=== PATIENT | male | born 1985 | race Caucasian/White ===

== ENCOUNTER 2018-09-12 09:04 | Inpatient (IN) | payer BC, OTHER ==
[~2018-09-12] VITALS: Ht 172.7 cm; Wt 98.7 kg
[2018-09-12] VITALS (29 sets, daily range): BP systolic 95–159; BP diastolic 48–89; PULSE 63–106; RESP 12–25; Ht 172.7 cm; Wt 98.7 kg
[~2018-09-12 09:04] MED LIST: CEFAZOLIN 1 GM INJ ONE; DEXAMETHASONE 4 MG/ML 5 ML INJ ONE; FENTAnyl 50 MCG/ML VIAL ONE; MIDAZOLAM 1 MG/ML 2 ML INJ ONE; PROPOFOL 200 MG INJ ONE
[2018-09-12] MEDS ORDERED: CEFAZOLIN 2 GM/50 ML (PMX) 50 ML IVPB SCH (10:30)
[2018-09-12] MEDS ORDERED: LACTATED RINGER'S 1L BAG IV* SCH (10:30)
[2018-09-12] MEDS ORDERED: SUGAMMADEX SODIUM 200 MG/2 ML VIAL IV ONE (11:30)
[2018-09-12] MEDS ORDERED: LIDOCAINE 2% (SDV) 5 ML INJ ONE (13:03)
[2018-09-12] MEDS ORDERED: ONDANSETRON 4 MG INJ ONE (13:03)
[2018-09-12] MEDS ORDERED: ROCURONIUM 50 MG INJ ONE (13:03)
[2018-09-12] MEDS ORDERED: SUCCINYLCHOLINE CHLORIDE 100 MG/5 ML SYG IV ONE (13:03)
[2018-09-12] MEDS ORDERED: PROPOFOL 20 ML ONE (13:03)
--- NOTE | 2018-09-12 13:41 | HPN ---
Date/Time of Note Date/Time of Note DATE: 09/12/18 TIME: 13:41 Interval H&P Admission Note Pt. seen H&P reviewed: No system changes KAMERON MOSS PA-C Sep 12, 2018 13:41
[2018-09-12] MEDS ORDERED: CYCLOBENZAPRINE 10 MG TAB PO PRN (14:00)
[2018-09-12] MEDS ORDERED: DIPHENHYDRAMINE 50 MG INJ IV PRN ×2 (14:00→14:30)
[2018-09-12] MEDS ORDERED: ACETAMINOPHEN 325 MG TAB PO PRN (14:00)
[2018-09-12] MEDS ORDERED: CEPASTAT LOZENGE MT PRN (14:00)
[2018-09-12] MEDS ORDERED: AL HYDROX/MG HYDROX/SIMETH 30 ML CUP PO PRN (14:00)
[2018-09-12] MEDS ORDERED: DIPHENHYDRAMINE 25 MG CAP PO PRN (14:00)
[2018-09-12] MEDS ORDERED: HYDROmorphONE 0.5 MG/0.5 ML SYG IV PRN (14:00)
[2018-09-12] MEDS ORDERED: NALOXONE (0.4 MG/ML) INJ IV PRN (14:00)
[2018-09-12] MEDS ORDERED: BISACODYL 10 MG SUPP PR PRN (14:00)
[2018-09-12] MEDS ORDERED: ONDANSETRON 4 MG INJ IV PRN ×2 (14:00→14:30)
--- NOTE | 2018-09-12 14:02 | PREAC ---
Date/Time of Note Date/Time of Note DATE: 09/12/18 TIME: 14:01 Anesthesia Eval and Record Evaluation Time Pre-Procedure Interview DATE: 09/12/18 TIME: 14:01 Age 32 Sex male NPO: 8 hrs Preoperative diagnosis lumbar disc herniation Planned procedure lumbar microdiskectomy Past Medical History Past Medical History: Includes Pulm: Sleep Apnea Neuro: Peripheral neuropathy GI: Obesity Psych: Other (PTSD) Surgery & Anesthesia Issues Hx of difficult intubation Meds Anticoagulation: No Beta Lora within 24 hr: No Reason Beta Lora not given: Pt. not on B-Lora No Active Prescriptions or Reported Meds Current Medications Potassium Chloride/Dextrose/ Sod Cl 1,000 ml @ 100 mls/hr Q10H IV ; Start 09/12/18 at 13:41 Acetaminophen/ Hydrocodone Bitart ([place] (10/325)) 1 tab Q4H PRN PO PAIN LEVEL 1-5; Start 09/13/18 at 10:00 Acetaminophen/ Hydrocodone Bitart ([place] (10/325)) 2 tab Q4H PRN PO PAIN LEVEL 6-10; Start 09/13/18 at 10:00 Hydromorphone HCl (Dilaudid) 0.2 mg Q1H PRN IV BREAKTHROUGH PAIN; Start 09/12/18 at 14:00 Cefazolin Sodium 50 ml @ 100 mls/hr Q8H IVPB ; Start 09/12/18 at 14:00; Stop 09/13/18 at 06:29 Ondansetron HCl (Zofran Inj) 4 mg Q6H PRN IV NAUSEA AND/OR VOMITING; Start 09/12/18 at 14:00 Bisacodyl (Dulcolax Supp) 10 mg DAILY PRN [place] CONSTIPATION; Start 09/12/18 at 14:00 Docusate Sodium (Colace) 100 mg BID PO ; Start 09/12/18 at 21:00 Al Hydrox/Mg Hydrox/Simethicone (Mag-Al Plus) 15 ml Q6H PRN PO constipation; Start 09/12/18 at 14:00 Acetaminophen (Tylenol Tab) 650 mg Q4H PRN PO fever; Start 09/12/18 at 14:00 Cyclobenzaprine HCl (Flexeril) 10 mg TID PRN PO MUSCLE SPASMS; Start 09/12/18 at 14:00 Phenol (Cepastat Lozenge) 1 lozenge PRN PRN [place] SORE THROAT; Start 09/12/18 at 14:00 Diphenhydramine HCl (Benadryl) 25 mg Q6H PRN PO ITCHING; Start 09/12/18 at 14:00 Diphenhydramine HCl (Benadryl) 25 mg Q6H PRN IV ITCHING; Start 09/12/18 at 14:00 Naloxone HCl (Narcan) 0.2 mg Q2M PRN IV rr; Start 09/12/18 at 14:00 Hydromorphone HCl (Dilaudid PETROLEUM REFINERY LABORER) PETRO[employer] REFINERY [employer]ORER to be started in PACU Q4PCA IV ; Start 09/12/18 at 14:00; Stop 09/13/18 at 10:00 Miscellaneous Information 1. Hold PETROLEUM REFINERY LABORER at 1,000... PETROLEUM [employer]FINERY [employer]ORER IV ; Start 09/12/18 at 1 4:00; Stop 09/13/18 at 10:00 Meds reviewed: Yes Allergies Coded Allergies: No Known Allergy (Unverified , 09/12/18) Allergies Reviewed: Yes Labs/Studies Labs Reviewed: Reviewed by anesthesiologist test: N/A Pre-procedure Exam Last vitals Vital Signs Date Temp Pulse Resp B/P (MAP) Pulse Ox O2 O2 Flow FiO2 Time Delivery Rate 09/12/18 96.2 18 111/78 97 10:26 (89) Airway: Adequate mouth opening, Adequate thyromental dist Mallampati: Mallampati III Teeth: Normal Lung: Normal Heart: Normal ASA Physical Status ASA physical status: 2 Emergency: None Planned Anesthetic General/MAC: ETT Planned Pain Management Parenteral pain med, Other neuraxial med, Local by surgeon Pre-operative Attestations Prior to commencing anesthesia and surgery, the patient was re-evaluated, there was verification of: *The patient's identity *The results of appropriate recent lab work and preoperative vital signs *The above evaluation not changing prior to induction *Anesthetic plan, risk benefits, alternative and complications discussed with patient/family; questions answered; patient/family understands, accepts and wishes to proceed. OLI FRANKLIN MD Sep 12, 2018 14:02
[2018-09-12] MEDS ORDERED: GELATIN SIZE 100 SPONGE ONE (14:08)
[2018-09-12] MEDS ORDERED: THROMBIN 5000 UNIT VIAL ONE ×2 (14:09→14:37)
[2018-09-12] MEDS ORDERED: BUPIVACAINE 0.5%/EPI (SDV) 30 ML INJ ONE (14:09)
[2018-09-12] MEDS ORDERED: POLYMYXIN/BACITRACIN 1L IRRIG ONE (14:09)
[2018-09-12] MEDS ORDERED: BUPIVACAINE 0.25% (MPF) 30 ML INJ ONE (14:09)
[2018-09-12] MEDS ORDERED: CA CHLORIDE (GM) 10% 10 ML INJ ONE (14:12)
[2018-09-12] MEDS ORDERED: CEFAZOLIN 1 GM INJ ONE (14:12)
[2018-09-12] MEDS ORDERED: CA CHLORIDE 10% 10 ML SYRINGE ONE (14:12)
[2018-09-12] MEDS ORDERED: HEPARIN 1000 UNITS/ML 10 ML INJ ONE (14:12)
[2018-09-12] MEDS ORDERED: HYDROmorphONE 1 MG/5 ML IV SYRINGE IV PRN ×3 (14:30)
[2018-09-12] MEDS ORDERED: LABETALOL HCL 20MG INJ IV PRN (14:30)
[2018-09-12] MEDS ORDERED: FENTAnyl 50 MCG/ML VIAL IV PRN ×2 (14:30)
[2018-09-12] MEDS ORDERED: IPRATROPIUM (NEB) 0.5 MG/2.5 ML AMP HHN PRN (14:30)
[2018-09-12] MEDS ORDERED: LEVALBUTEROL (NEB) 1.25 MG/0.5 ML AMP HHN PRN (14:30)
[2018-09-12] MEDS ORDERED: hydrALAzine 20 MG INJ IV PRN (14:30)
[2018-09-12] MEDS ORDERED: MEPERIDINE 25 MG INJ IV PRN (14:30)
[2018-09-12] MEDS ORDERED: PHENYLephrine (100 MCG/ML) 10ML SYG ONE (14:33)
[2018-09-12] MEDS ORDERED: SURGIFOAM POWDER 1 GM KIT ONE (14:37)
[2018-09-12] MEDS: CEFAZOLIN 1 GM/50 ML (PMX) 50 ML IVPB SCH ×2 (15:00→21:36)
--- NOTE | 2018-09-12 16:19 | SIPON ---
Date/Time of Note Date/Time of Note DATE: 09/12/18 TIME: 16:19 Operative Report Preoperative Diagnosis Left L5-S1 disc herniation Postoperative Diagnosis Left L5-S1 disc herniation Operation/Procedure Performed Left L5-S1 discectomy Surgeon see signature line community assistant Jesi Rodriguez PA-C Anesthesia: general Estimated blood loss: 10 - 50 ml's Transfusion Required none Specimen Disc Grafts/Implants none Complications none KEKE SARGENT MD Sep 12, 2018 16:19
--- NOTE | 2018-09-12 16:38 | PAC ---
Date/Time of Note Date/Time of Note DATE: 09/12/18 TIME: 16:38 Post-Anesthesia Notes Post-Anesthesia Note Last documented vital signs Vital Signs Date Temp Pulse Resp B/P (MAP) Pulse Ox O2 O2 Flow FiO2 Time Delivery Rate 09/12/18 98.5 16:22 09/12/18 18 111/78 97 10:26 (89) Activity: WNL Respiratory function: WNL Cardiovascular function: WNL Mental status: Baseline Pain reasonably controlled: Yes Hydration appropriate: Yes Nausea/Vomiting absent: Yes OLI FRANKLIN MD Sep 12, 2018 16:38
--- NOTE | 2018-09-12 16:41 | OPR ---
DATE OF OPERATION: 09/12/2018 PREOPERATIVE DIAGNOSES: Left L5 to S1 disk herniation with radiculopathy. POSTOPERATIVE DIAGNOSES: Left L5 to S1 disk herniation with radiculopathy. PROCEDURES: 1. Left L5 to S1 hemilaminotomy, partial medial facetectomy and foraminotomy. 2. Left L5 to S1 lumbar microdiskectomy. 3. Use of operative microscope. 4. Lateral localizing film x2. 5. Intraoperative neuromonitoring. PRIMARY SURGEON: Gustavo Zendejas MD HEALTH ANALYTICS CONSULTANT: Jesi Rodriguez PA-C NEED FOR WASHER ASSEMBLER: During this spinal surgical procedure, my assistant engineer was used to retract and protect the spinal nerves and dural sac. My assistant engineer also employed the suction catheters to ev acuate blood from the surgical field to improve visualization of the neural structures. The assistan t was medically necessary to facilitate the completion of the surgery in a safe and expeditious [facility] r. [facility] regulations, as well as hospital bylaws, preclude the use of non-licensed [facility] care personnel, such as operating room technicians, to perform these functions. FINDINGS: Neuromonitoring at the start of the case revealed left S1 amplitude down 60%. At the end of the case, nerve signals returned to normal. The patient had left-sided herniation at the L5 to S1 level with displacement of the S1 nerve root. ESTIMATED BLOOD LOSS: Less than 30 mL. DRAINS: None. COMPLICATIONS OF PROCEDURES: None. SPECIMENS: L5 to S1 disk herniation. ANESTHESIOLOGIST: Dr. Diallo TYPE OF ANESTHESIA: General. INDICATIONS FOR PROCEDURE: This is a 32-year-old gentleman with left lumbar radiculopathy in setting of left-sided disk herniation at the L5 to S1 level. He failed nonoperative measures; therefore it was recommended that he undergo the above surgery. Preoperatively, we discussed risks, benefits and alternatives. He understood and wished to proceed. DESCRIPTION OF PROCEDURE IN DETAIL: The patient was identified in the preoperative holding area, giv en Ancef antibiotic, taken to the operating room, where he was successfully placed under general anes thesia. Neuromonitoring were placed. Sequential devices were applied. Remote intraoperative run wa s performed by Dr. Diaz from 14:00 until 16:10 to include SSEP, MEP and EMG performed by [facility]. The patient was placed on the operating table in prone position over a Apollo frame. All bony prominences were well padded. The back was then prepped and draped in usual sterile fashion. Spinal needles were placed and lateral localizing films obtained to confirm the correct levels. Once this was confirmed, I injected the skin and subcutaneous tissue with 0.25% Marcaine and epinephrine. Incision was then made over the L5 to S1 level. Incision was taken down to dorsal fascia, which wa s incised with Bovie cautery. I then subperiosteally dissected the L5 lamina. Jailyn retractor was placed. Kerrison was placed in what was felt to be the L5 lamina and repeat lateral films obtained t o confirm the correct levels. Once this was confirmed, microscope was brought in. Left-sided hemila minotomy, partial medial facetectomy and foraminotomy performed. Microscope was then brought in. Li gamentum flavum was then sharply dissected. I then identified the S1 nerve root which my assistant engineer r etracted medially. I identified the annulus, made a small slit through the annulus and removed extru ded fragments which were more centrally located just underneath the S1 nerve root. Once this was don e, I irrigated the disk space. All nerve signals returned to normal. I irrigated the wound. Valsal va was performed and there was no leak of CSF. Hemostasis was achieved with bipolar cautery and Surg ifoam. The wound was dry and I therefore elected not to place a drain. I injected PRP into the disk space and PPP and thrombin over the dura for hemostatic purposes. Retractors were then removed. I closed the deep fascia with #1 Vicryl stitch. Plain Marcaine was then injected. I then closed subcu taneous tissue with a 2-0 Vicryl stitch. Microscope was taken off the field. A 4-0 Monocryl closure was then performed. Dermabond was then applied. The patient was awakened from anesthesia and taken to the recovery room in stable condition. Lap, sponge and instrument counts were correct x2. There were no complications during the procedure. The patient will be admitted to the [facility] for routine postoperative care to include pain co ntrol, neurovascular checks, antibiotics and physical therapy. Dictated By: GUSTAVO MOYER/AIDA Conf#: [id number] DID#: [id number] CC: LEAH PATINO MD;*[facility]*
--- NOTE | 2018-09-12 17:37 | CONS ---
DATE OF ADMISSION: 09/12/2018 DATE OF CONSULTATION: 09/12/2018 TYPE OF CONSULTATION: Postop medical consultation. Thank you very much for allowing me to evaluate this 32-year-old male who just underwent lumbar back surgery. HISTORICAL EVENTS: As you well know, this patient did suffer an injury to his back at work about 2 y ears ago, which resulted in severe pain involving the left leg that has persisted through the present . Because of conservative efforts that did not allow any appreciable improvement, he elected to proc eed with surgery today. In recovery, he is comfortable without cough, wheezing, shortness of breath, nausea, vomiting, abdominal or chest pain. PAST MEDICAL HISTORY: 1. Posttraumatic stress disorder. 2. History of traumatic brain injury. 3. Prior tonsillectomy and wisdom tooth extraction. MEDICATIONS: Prior to admission, include: 1. Flexeril 10 mg t.i.d. 2. [place] 10/325. ALLERGIES: NONE. SOCIAL HISTORY: Legally . He does not smoke and does not drink. PHYSICAL EXAMINATION: GENERAL: [place] male in no acute distress. VITAL SIGNS: BP 122/80, pulse 70, respirations were 18. He was afebrile. EYES: Extraocular muscles were full. NOSE, MOUTH, AND THROAT: Normal. NECK: Supple. There was no jugular venous distention, thyroid enlargement or adenopathy. Carotids 2+. LUNGS: Clear. HEART: Rhythm regular. No murmur. No third or fourth sound. ABDOMEN: Nontender. Liver and spleen were not palpable. No mass or tenderness were noted. EXTREMITIES: No edema. Calves nontender. IMPRESSION: 1. Stable postoperative lumbar back surgery. 2. Traumatic brain injury. 3. History of posttraumatic stress disorder. PLAN: Again, reviewed details with respect to his history of posttraumatic stress disorder. Once he is more alert, will follow him daily for signs and symptoms of thromboembolic disease, and will foll ow with you. Dictated By: EMERSON RODRIGUEZ/NTS Conf#: [id number] DID#: [id number] CC: KEKE SARGENT MD;*EndCC*
[2018-09-12] MEDS: HYDROmorphONE 0.2 MG/ML PCA IV SCH (17:40)
[2018-09-12] MEDS: D5W-0.45 NACL + KCL 20 MEQ 1,000 ML IV SCH ×2 (19:15→23:41)
[2018-09-12] MEDS: DOCUSATE SODIUM 100 MG CAP PO SCH (21:35)
[2018-09-13 02:37] VITALS: BP 122/71; PULSE 94; RESP 18
[2018-09-13] MEDS: HYDROmorphONE 0.2 MG/ML PCA IV SCH (03:30)
[2018-09-13] MEDS: CEFAZOLIN 1 GM/50 ML (PMX) 50 ML IVPB SCH (06:06)
[2018-09-13 07:20] VITALS: BP 111/64; PULSE 85; RESP 18
--- NOTE | 2018-09-13 08:37 | CONS ---
Date/Time of Note Date/Time of Note DATE: 09/13/18 TIME: 08:35 Assessment/Plan Assessment/Plan Assessment/Plan 1. Doing well post op lumbar back surgery 2. Hiccups, will add iv Protonix and Reglan 3. Elev wbc likely from steroids Result Diagram: 09/13/18 0449 09/13/189 Results 24hrs Laboratory Tests Test 09/13/18 04:49 09/13/18 06:41 White Blood Count 16.2 H Red Blood Count 4.90 Hemoglobin 15.2 Hematocrit 43.3 Mean Corpuscular Volume 88.4 Mean Corpuscular Hemoglobin 31.0 Mean Corpuscular Hemoglobin Concent 35.1 Red Cell Distribution Width 11.2 L Platelet Count 365 Mean Platelet Volume 9.8 Immature Granulocytes % 0.600 H Neutrophils % 89.3 H Lymphocytes % 4.6 L Monocytes % 5.4 Eosinophils % 0.0 Basophils % 0.1 Nucleated Red Blood Cells % 0.0 Immature Granulocytes # 0.090 H Neutrophils # 14.5 H Lymphocytes # 0.8 Monocytes # 0.9 Eosinophils # 0.0 Basophils # 0.0 Nucleated Red Blood Cells # 0.0 Sodium Level 141 Potassium Level 4.3 Chloride Level 105 Carbon Dioxide Level 26 Anion Gap 10 Blood Urea Nitrogen 13 Creatinine 1.00 Est Glomerular Filtrat Rate mL/min > 60 Glucose Level 127 Calcium Level 9.6 Magnesium Level 1.9 Lab Scanned Report REFERENCE LAB Consultation Date/Type/Reason Admit Date/Time Sep 12, 2018 at 09:04 Initial Consult Date Detailed Summary Respiratory: No cough, No shortness of breath Cardiovascular: No chest pain, No orthopenea Gastrointestinal: other (hiccups started about 30 min ago); No pain, No nausea, No vomiting Genitourinary: no complaints Musculoskeletal: back pain (mild to mod) Exam/Review of Systems Vital Signs Vitals Vital Signs Date Temp Pulse Resp B/P (MAP) Pulse Ox O2 O2 Flow FiO2 Time Delivery Rate 09/13/18 97.7 85 18 111/64 95 Room Air 07:20 (80) 09/12/18 2.0 16:51 Intake and Output 09/12/18 09/12/18 09/13/18 1515:00 23:00 07:00 IntakeIntake Total 1300 ml 1750 ml OutputOutput Total 125 ml 2100 ml BalanceBalance 1175 ml -350 ml Exam Neck: No jvd Respiratory: clear to auscultation Cardiovascular: regular rate and rhythm Gastrointestinal: soft Extremities: No edema Medications Medications Current Medications Potassium Chloride/Dextrose/ Sod Cl 1,000 ml @ 100 mls/hr Q10H IV Last administered on 09/12/18at 19:15; Admin Dose 100 MLS/HR; Start 09/12/18 at 13:41 Acetaminophen/ Hydrocodone Bitart ([place] (10/325)) 1 tab Q4H PRN PO PAIN LEVEL 1-5; Start 09/13/18 at 10:00 Acetaminophen/ Hydrocodone Bitart ([place] (10/325)) 2 tab Q4H PRN PO PAIN LEVEL 6-10; Start 09/13/18 at 10:00 Hydromorphone HCl (Dilaudid) 0.2 mg Q1H PRN IV BREAKTHROUGH PAIN; Start 09/12/18 at 14:00 Ondansetron HCl (Zofran Inj) 4 mg Q6H PRN IV NAUSEA AND/OR VOMITING; Start 09/12/18 at 14:00 Bisacodyl (Dulcolax Supp) 10 mg DAILY PRN [place] CONSTIPATION; Start 09/12/18 at 14:00 Docusate Sodium (Colace) 100 mg BID PO Last administered on 09/12/18at 21:35; Admin Dose 100 MG; Start 09/12/18 at 21:00 Al Hydrox/Mg Hydrox/Simethicone (Mag-Al Plus) 15 ml Q6H PRN PO constipation; Start 09/12/18 at 14:00 Acetaminophen (Tylenol Tab) 650 mg Q4H PRN PO fever; Start 09/12/18 at 14:00 Cyclobenzaprine HCl (Flexeril) 10 mg TID PRN PO MUSCLE SPASMS; Start 09/12/18 at 14:00 Phenol (Cepastat Lozenge) 1 lozenge PRN PRN [place] SORE THROAT; Start 09/12/18 at 14:00 Diphenhydramine HCl (Benadryl) 25 mg Q6H PRN PO ITCHING; Start 09/12/18 at 14:00 Diphenhydramine HCl (Benadryl) 25 mg Q6H PRN IV ITCHING; Start 09/12/18 at 14:00 Naloxone HCl (Narcan) 0.2 mg Q2M PRN IV rr; Start 09/12/18 at 14:00 Hydromorphone HCl (Dilaudid FIRER PORTABLE BOILER) FIRER PORTABLE BOILER to be started in PACU Q4PCA IV Last administered on 09/13/18at 03:30; Admin Dose 6 MG; Start 09/12/18 at 14:00; Stop 09/13/18 at 10:00 Miscellaneous Information 1. Hold FIRER PORTABLE BOILER at 1,000... FIRER PORTABLE BOILER IV ; Start 09/12/18 at 14:00; Stop 09/13/18 at 10:00 EMERSON CRANE MD Sep 13, 2018 08:37
[2018-09-13] MEDS ORDERED: PANTOPRAZOLE 40 MG INJ IV SCH (09:00)
[2018-09-13] MEDS ORDERED: METOCLOPRAMIDE 10 MG INJ IV SCH (09:00)
[2018-09-13] MEDS: DOCUSATE SODIUM 100 MG CAP PO SCH (09:34)
[2018-09-13] MEDS ORDERED: HYDROCODONE/APAP (10/325) TAB PO PRN ×2 (10:00)
--- NOTE | 2018-09-13 13:03 | DS ---
Date/Time of Note Date/Time of Note DATE: 09/13/18 TIME: 13:02 Discharge Summary Admission/Discharge Info Admit Date/Time Sep 12, 2018 at 09:04 Discharge Date/Time September 13 Discharge Diagnosis Status post lumbar discectomy Patient Condition: Good Procedures Lumbar discectomy Hospital Course Patient was admitted to the [facility] after undergoing a lumbar discectomy. His postoperative course was uncomplicated. By postoperative day 1 he was deemed stable for discharge with follow-up arranged with the undersigned Home Meds No Active Prescriptions or Reported Meds Primary Care Provider Not On Staff Doctor Pending Labs Laboratory Tests Test 09/13/18 04:49 09/13/18 06:41 White Blood Count 16.2 10^3/ul (4.8-10.8) Red Blood Count 4.90 10^6/ul (4.70-6.10) Hemoglobin 15.2 g/dl (14.0-18.0) Hematocrit 43.3 % (42.0-52.0) Mean Corpuscular Volume 88.4 fl (82.0-101.0) Mean Corpuscular Hemoglobin 31.0 pg (29.0-33.0) Mean Corpuscular 35.1 g/dl (32.0-37.0) Hemoglobin Concent Red Cell Distribution Width 11.2 % (11.5-14.5) Platelet Count 365 10^3/UL (140-415) Mean Platelet Volume 9.8 fl (7.4-10.4) Immature Granulocytes % 0.600 % (0.001-0.429) Neutrophils % 89.3 % (39.0-77.0) Lymphocytes % 4.6 % (15.0-51.0) Monocytes % 5.4 % (0.0-11.0) Eosinophils % 0.0 % (0.0-7.0) Basophils % 0.1 % (0.0-2.0) Nucleated Red Blood Cells % 0.0 /100WBC (0.0-0.0) Immature Granulocytes # 0.090 10^3/ul (0.0-0.031) Neutrophils # 14.5 10^3/ul (1.6-7.5) Lymphocytes # 0.8 10^3/ul (0.8-2.9) Monocytes # 0.9 10^3/ul (0.3-0.9) Eosinophils # 0.0 10^3/ul (0.0-0.5) Basophils # 0.0 10^3/ul (0.0-0.1) Nucleated Red Blood Cells # 0.0 10^3/ul (0.0-0.0) Sodium Level 141 mmol/L (135-144) Potassium Level 4.3 mmol/L (3.5-5.1) Chloride Level 105 mmol/L (97-110) Carbon Dioxide Level 26 mmol/L (21-31) Anion Gap 10 (5-13) Blood Urea Nitrogen 13 mg/dl (7-20) Creatinine 1.00 mg/dl (0.61-1.24) Est Glomerular Filtrat > 60 mL/min (>60) Rate mL/min Glucose Level 127 mg/dl (70-220) Calcium Level 9.6 mg/dl (8.4-10.2) Magnesium Level 1.9 mg/dl (1.7-2.5) Lab Scanned Report REFERENCE LAB [id number] KEKE SARGENT MD Sep 13, 2018 13:03
== END 2018-09-13 14:15 | disposition home or self-care (01) | DRG 520 ==
LOC: REC 09:04 → EDSTATUS 10:30 → MS1 17:55
PROVIDERS: ADMIT Specialist; ATTEND Specialist
PROC: 0SB40ZZ Excision of Lumbosacral Disc, Open Approach (ICD-10-PCS; principal; 2018-09-12 12:00)
DX: M51.17 Intervertebral disc disorders with radiculopathy, lumbosacral region (principal); Z87.820 Personal history of traumatic brain injury
CPT/HCPCS: 72020; 80048; 83735; 85025; 86999; 88304; 97116; 97161; C9113; J0690; J1100; J1170; J1644; J2250; J2370; J2405; J2765; J3010; J3480